=== PATIENT | male | born 1965 | race Caucasian/White ===

== ENCOUNTER 2019-06-26 19:01 | Observation (INO) | payer OTHER ==
[~2019-06-26] VITALS: Ht 167.6 cm; Wt 69.4 kg
[2019-06-26 20:02] LABS: BASOPHILS ABSOLUTE AUTO 0.02 K/mm3 (0.00-0.23); BASOPHILS PERCENT AUTO 0 % (0-2); EOSINOPHILS ABSOLUTE AUTO 0.09 K/mm3 (0.00-0.68); EOSINOPHILS PERCENT AUTO 2 % (0-6); Hematocrit 36.6 % (37.0-53.0); Hemoglobin 13.3 g/dL (13.5-17.5); IMMATURE GRAN ABSOLUTE AUTO 0.01 K/mm3 (0.00-0.10); IMMATURE GRAN PERCENT AUTO 0 % (0-1); LYMPHOCYTES ABSOLUTE AUTO 1.18 K/mm3 (0.84-5.20); LYMPHOCYTES PERCENT AUTO 22 % (21-46); MONOCYTES PERCENT AUTO 8 % (4-13); Mean Corpuscular HGB 33.1 pg (26.0-34.0); Mean Corpuscular HGB Conc 36.3 g/dL (31.5-36.5); Mean Corpuscular Volume 91 fL (80-100); Mean Platelet Volume 9.1 fL (9.1-12.4); NEUTROPHILS ABSOLUTE AUTO 3.61 K/mm3 (1.96-9.15); NEUTROPHILS PERCENT AUTO 68 % (41-73); Platelet Count 142 K/mm3 (150-400); RDW Coefficient Variation 11.1 % (11.7-14.2); RDW Standard Deviation 37.5 fL (35.1-46.3); Red Blood Cell Count 4.02 M/mm3 (4.30-5.90); White Blood Cell Count 5.31 K/mm3 (4.00-11.30)
[2019-06-26 20:15] LABS: Ethanol (Alcohol), Blood, Med <3 mg/dL
[2019-06-26 20:17] LABS: Alanine Aminotransfer (ALT/SGP 77 U/L (12-78); Albumin, Blood 4.1 g/dL (3.4-5.0); Albumin/Globulin Ratio 1.2 (0.8-1.8); Alk Phos 79 U/L (50-136); Anion Gap 11 mmol/L (6-16); Aspartate Aminotrans (AST/SGOT 75 U/L (12-37); Bilirubin, Total 1.3 mg/dL (0.1-1.0); Blood Urea Nitrogen 6 mg/dL (8-24); Bun/Creatinine Ratio 11.6 (12.0-20.0); CO2, Blood 26 mmol/L (21-32); Calcium, Blood 8.6 mg/dL (8.5-10.1); Chloride, Blood 82 mmol/L (98-108); Creatinine, Blood 0.52 mg/dL (0.60-1.20); Globulin, Blood 3.4 g/dL (2.2-4.0); Glomerular Filtration Rate >60 (60-); Glucose, Blood 104 mg/dL (70-99); Potassium, Blood 3.2 mmol/L (3.5-5.5); Sodium, Blood 119 mmol/L (136-145); Total Protein, Blood 7.5 g/dL (6.4-8.2)
[2019-06-26 21:25] LABS: Source, Urine Clean Catch
[2019-06-26 21:28] LABS: Appearance, Urine Clear (Clear); Bilirubin, Urine Neg (Neg); Blood, Urine Neg (Neg); Color, Urine Pale Yellow (P-Yellow); Glucose Qualitative, Urine Neg (Neg); Ketones, Urine 1+ (Neg); Leukocyte Esterase, Urine Neg (Neg); Nitrite, Urine Neg (Neg); Protein, Urine Neg (Neg); Urobilinogen, Urine NORM (Normal)
[2019-06-26 21:50] LABS: Sodium, Urine, Random 11 mmol/L (20-110)
[2019-06-26 21:54] LABS: Osmolality, Urine <50 mos/kg (15-1400)
[2019-06-26 22:37] LABS: U Amphetamine Screen Not Detected; U Barbituate Screen Not Detected; U Benzodiazapine Screen Not Detected; U Buprenorphine Screen Not Detected; U Cannabinoids Screen Not Detected; U Cocaine Screen Not Detected; U Methadone Screen Not Detected; U Methamphetamine Screen Not Detected; U Opiates Screen Not Detected; U Oxycodone Screen Not Detected; U Phencyclidine Screen Not Detected; U Propoxyphene Screen Not Detected
--- NOTE | 2019-06-26 23:38 | NUR ---
ADMIT NOTE: ADMIT 53 YEAR OLD MALE TO ICU 7, PCU STATUS, TO HOSPITALIST, DR PETTIT SERVICE PER BETTY VIA ER. GAIT STEADY TO BED. MONITOR PLACED SHOWING SINUS RHYTHM. HEART RATE 80'S-90'S. DENIES DISCOMFORT BLOOD CONSENT AND RELEASE OF INFORMATION COMPLETED. COOPERATIVE TO CARES. LUNG SOUNDS CLEAR . RESPIRATIONS REGULAR AND EASY ON ROOM AIR SPO2 95-97% ABDOMEN SOFT WITH BOWEL SOUNDS FOUR QUADS. VOIDS CLARIBEL URINE PER URINAL SKIN WARM DRY INTACT. NO EDEMA NOTED PEDAL PULSES PRESENT. CONTINUE TO MONITOR AND REPORT CHANGE IN PATIENT CONDITION.
[2019-06-27] LABS: Anion Gap 8 mmol/L (6-16); Blood Urea Nitrogen 6 mg/dL (8-24); Bun/Creatinine Ratio 11.7 (12.0-20.0); CO2, Blood 27 mmol/L (21-32); Calcium, Blood 8.5 mg/dL (8.5-10.1); Chloride, Blood 94 mmol/L (98-108); Creatinine, Blood 0.51 mg/dL (0.60-1.20); Glomerular Filtration Rate >60 (60-); Glucose, Blood 99 mg/dL (70-99); Potassium, Blood 3.9 mmol/L (3.5-5.5); Sodium, Blood 129 mmol/L (136-145)
--- NOTE | 2019-06-27 06:02 | NUR ---
SHIFT SUMMARY: RESTS QUIETLY WHEN UNDISTURBED. MONITOR INTACT SHOWING SINUS RHYTHM/ SINUS JEFF. HEART RATE 50'S-90'S. LUNG SOUNDS REMAIN CLEAR RESPIRATIONS REGULAR AND EASY ON ROOM AIR. SPO2 95-98%. ABDOMEN SOFT WI TH BOWEL SOUNDS FOUR QUADS. VOIDS CLARIBEL URINE PER URINAL. COOPERATIVE TO CARES CIWA 10-13. CONTINUE TO MONITOR AND REPORT CHANGE IN PATINET CONDITION REPOSITIONS SELF IN BED.
[2019-06-27 06:25] LABS: Hematocrit 35.9 % (37.0-53.0); Hemoglobin 12.7 g/dL (13.5-17.5); Mean Corpuscular HGB 33.1 pg (26.0-34.0); Mean Corpuscular HGB Conc 35.4 g/dL (31.5-36.5); Mean Platelet Volume 9.1 fL (9.1-12.4); Platelet Count 123 K/mm3 (150-400); RDW Coefficient Variation 11.4 % (11.7-14.2); RDW Standard Deviation 38.8 fL (35.1-46.3); Red Blood Cell Count 3.84 M/mm3 (4.30-5.90); White Blood Cell Count 3.39 K/mm3 (4.00-11.30)
[2019-06-27 06:30] LABS: Mean Corpuscular Volume 94 fL (80-100)
[2019-06-27 06:47] LABS: Alanine Aminotransfer (ALT/SGP 66 U/L (12-78); Albumin, Blood 3.7 g/dL (3.4-5.0); Albumin/Globulin Ratio 1.2 (0.8-1.8); Alk Phos 71 U/L (50-136); Anion Gap 8 mmol/L (6-16); Aspartate Aminotrans (AST/SGOT 69 U/L (12-37); Blood Urea Nitrogen 5 mg/dL (8-24); Bun/Creatinine Ratio 8.1 (12.0-20.0); CO2, Blood 24 mmol/L (21-32); Calcium, Blood 8.6 mg/dL (8.5-10.1); Chloride, Blood 96 mmol/L (98-108); Creatinine, Blood 0.62 mg/dL (0.60-1.20); Globulin, Blood 3.1 g/dL (2.2-4.0); Glomerular Filtration Rate >60 (60-); Glucose, Blood 101 mg/dL (70-99); Potassium, Blood 3.5 mmol/L (3.5-5.5); Sodium, Blood 128 mmol/L (136-145); Total Protein, Blood 6.8 g/dL (6.4-8.2)
--- NOTE | 2019-06-27 07:30 | NUR ---
Recieved report from Bandar SIMMONS. Patient awakens easily and is able to communicate his needs. He is on RA and sats mid to upper 90%'s. He has 20ga IV RW dressing intact and site WNL's and is infusing NS at 100ml/hr. He is independet in room. Uses urinal appropriately and BRP.
--- NOTE | 2019-06-27 10:00 | NUR ---
Dr Mario has been by and states patient can be discharge at noon and has pre written script for Librium to take post hospital.He tolerated am meds and breakfast well. He has slight tremors and is a little shaky. VSS.
[2019-06-27] MEDS ORDERED: FOLI1 PO (11:52)
[2019-06-27] MEDS ORDERED: CHLO25 PO (11:53)
--- NOTE | 2019-06-27 12:16 | NUR ---
Patient being discharged. PCT helping get belongings and dressed amnd he will go out in wheelchair. He has recieveed written discharge orders and one script. He has returned understanding of all information and the need not to binge drink. VSS IV pulled intact and wrapped in coban. He is independent in room
--- NOTE | 2019-06-27 18:14 | NUR ---
Per RN request, I met with Waldo to offer information about alcoholism and 12-step programs in the area. He tells me he has been able to quit on his own before and expects he can do it again. I adnised him to reach out for help if he needed it, and provided a list of all AA meeting locations and times in [facility]. He thanked me for the information.
== END 2019-06-27 12:43 | disposition home or self-care (01) ==
LOC: ER 19:01 → ICUE 19:02 → ICUW 19:02 → ICUE 19:03 → ICUW 22:04 → ICUE 22:04 → ER 22:04 → ICUW 23:40 → ICUE 23:40
PROVIDERS: Emergency Medicine; Nurse Practitioner Acute Care; Physician Assistant; ADMIT Internal Medicine
DX: E87.1 Hypo-osmolality and hyponatremia (principal); F10.20 Alcohol dependence, uncomplicated; E87.6 Hypokalemia; R44.1 Visual hallucinations; D64.9 Anemia, unspecified; F17.200 Nicotine dependence, unspecified, uncomplicated; Z79.899 Other long term (current) drug therapy
CPT/HCPCS: 36415; 80048; 80053; 81003; 83735; 83930; 83935; 84300; 84443; 85025; 85027; 96361; 96365; 96375; 99285-25; G0378; G0480; J1650; J3475; J3480; J7030

== ENCOUNTER 2019-11-02 13:33 | Day surgery (SDC) | payer OTHER ==
[~2019-11-02] VITALS: Ht 167.6 cm; Wt 74.1 kg
[~2019-11-02 13:33] MED LIST: CHLO25 PO; FOLI1 PO
== END 2019-11-02 17:59 | disposition home or self-care (01) ==
LOC: ORSCSDS 13:33
PROVIDERS: Student in an Organized Health Care Education/Training Program
PROC: 0DBN8ZX Excision of Sigmoid Colon, Via Natural or Artificial Opening Endoscopic, Diagnostic (ICD-10-PCS; principal; 2019-11-02 15:00)
PROC: 0DBC8ZX Excision of Ileocecal Valve, Via Natural or Artificial Opening Endoscopic, Diagnostic (ICD-10-PCS; principal; 2019-11-02 15:00)
DX: Z12.11 Encounter for screening for malignant neoplasm of colon (principal); K63.5 Polyp of colon; K57.30 Diverticulosis of large intestine without perforation or abscess without bleeding
CPT/HCPCS: 88305; J2704; J7120